=== PATIENT | female | born 2000 | race Caucasian/White ===

== ENCOUNTER 2024-07-28 17:21 | Inpatient (IN) ==
--- NOTE | 2024-07-28 18:25 | Emergency Department Note ---
Impression & Plan Mood disorder, Suicidal ideation ED Provider Note NAME: HIEN LAURENT AGE: 23 SEX: Female INFORMANT: Patient ED PROVIDER(S): Joe Madera MD CHIEF COMPLAINT: Mental-health evaluation PLAN: Disposition: Pending admission to [facility] Outpatient prescription management: none Referral: None MEDICAL DECISION MAKING: Patient presented because of mental health evaluation by direction of her counselor. There was concerns about escalating suicidal thoughts. Patient's blood work and urinalysis were unremarkable. Tylenol, salicylate and alcohol levels negative. Patient was evaluated by the mail manager. [facility] was consulted for inpatient management. Care/management discussed with: ED psychiatric telephonic case manager Level of care consideration(s): After review of the information above and other included data, I feel the patient requires escalation of care to admission Triage Nursing notes: reviewed and agree them. Vital Signs: reviewed and remarkable for no significant abnormalities Additional History obtained from: none Chronic Medical/Social Conditions affecting care: Depression Prior/ Outside/ External records reviewed: none Differential Diagnosis: Mood disorder, infection, hypoglycemia, electrolyte abnormalities, cardiac sources, intracerebral event, toxicologic, trauma, neurologic, as well as other pathologies. Diagnostics, independently interpreted by me: ECG: none Cardiac Monitoring: none Medical decision rules: none Imaging studies: Deferred HPI: 23 year old Female arrives for a mental health evaluation. Patient was referred to the ER by her counselor due to thoughts of SI. Patient's counselor did contact the emergency department and spoke to ED case management noting concerns with developing SI plans and recommended inpatient management. Patient notes that she has not been sleeping well over the last week. Her energy and concentration is also down. Patient denies any recent medical illness. Denies any alcohol on a regular basis. No drug use. Pt denies LOC, headache, fevers, chills, diaphoresis, visual changes, neck pain, chest pain, breathing difficulties, nausea, vomiting, abdominal pain, back pain, urinary symptoms, numbness, weakness, lymphadenopathy, rash, or other complaints. PAST MEDICAL HISTORY: See Below, depression, asthma PAST SURGICAL HISTORY: See Below, SOCIAL HISTORY: See Below, [employer] student [employer] MEDICATIONS: See Below ALLERGIES: See Below VITALS: See Below PHYSICAL EXAMINATION: GENERAL: Awake, alert, anxious-appearing, in no distress HENT: Normocephalic, atraumatic. Oropharynx unremarkable. EYES: Normal conjunctiva. Sclera non-icteric. NECK: Inspection normal. Non-tender. Supple. No nuchal rigidity. FROM. No masses. RESPIRATORY: Clear to auscultation. No wheezes. No rales. Normal respiratory effort. CARDIAC: Normal rate. Normal rhythm. No murmurs. No rubs. Extremities warm and well perfused. Pulses equal. No JVD. GI: Soft, non-distended. No tenderness to palpation. No rebound or guarding. No masses. RECTAL: Deferred. MUSCULOSKELETAL: Atraumatic. Chest examination reveals no tenderness. The back is symmetrical on inspection without obvious abnormality. There is no CVA tenderness to palpation. No joint edema. LOWER EXTREMITIES: Calves are equal size bilaterally and non-tender. No edema. No discoloration. NEURO: Normal sensorium. No sensory or motor deficits noted. SKIN: No rash or jaundice noted. PSYCH: Depressed mood. Vague SI. Labile affect. PROCEDURES: none CRITICAL CARE: none OBSERVATION NOTE: none Past Med/Surg History Problem List (Updated 07/31/24 @ 10:40 by Kev Zimmerman MD) Social anxiety disorder Conflict-avoiding behavior Nightmares Generalized anxiety disorder with panic attacks Major depression, recurrent Depression with suicidal ideation Suicidal ideation (Acute) Mood disorder (Acute) Medical History Allergies Dyspepsia Anxiety Asthma Surgical History No pertinent past surgical history Social History Smoking Status: Never smoker Preferred Language: Turkmen Communication Ability: Effective Melt Supervisor Required: No Beliefs That Will Affect Care: None Feels Safe at Home: Yes Gender Identity: Female Assistive Devices: None Allergies Allergies Allergy/AdvReac Type Severity Reaction Status Date / Time nut - unspecified Allergy Severe Anaphylaxis Unverified 07/29/24 02:50 azithromycin Allergy Intermediate Unverified 04/20/24 12:30 dog dander Allergy Intermediate Hives Unverified 07/29/24 02:51 cat dander Allergy Hives Unverified 07/29/24 02:51 Home Meds Home Medications Medication Instructions Recorded Confirmed buspirone 10 mg tablet 10 mg PO TID 04/20/24 07/28/24 zonisamide 100 mg capsule 100 mg PO HS 04/20/24 07/28/24 budesonide-formoterol HFA 160 2 puff inhalation BID 07/28/24 07/28/24 mcg-4.5 mcg/actuation aerosol inhaler (Symbicort) escitalopram oxalate 20 mg tablet 20 mg PO HS 07/28/24 07/28/24 loratadine 10 mg tablet (Claritin) 10 mg PO DAILY 07/28/24 07/28/24 Previous Rx's Medication Instructions Recorded albuterol sulfate 90 mcg/actuation 2 inh inhalation Q6H PRN shortness 01/16/22 aerosol inhaler (Ventolin HFA) of breath or wheezing #8.5 grams Results & Data (ED) Vital Signs Vital Signs - 24 hr 07/28/24 17:24 Temperature 36.6 C Temperature Source Temporal Artery Scan Pulse Rate 101 H Respiratory Rate 18 Respiratory Effort / Characteristics Non-Labored Spontaneous Respiratory Depth Normal Blood Pressure 117/71 Blood Pressure Mean 86 Blood Pressure Position Sitting Pulse Oximetry 97 Oxygen Delivery Method Room Air Sepsis Recent Fever Within 48 Hours No Sepsis New/Unexplained Change in Mental Status No Sepsis Action Taken by Nursing No Action Required Laboratory Data 07/28/24 17:48 07/28/24 17:48 Lab Results 07/28/24 07/28/24 07/28/24 Range/Units 17:08 17:34 17:48 WBC 5.66 (4.8-10.8) K/ul RBC 4.73 (4.20-5.40) M/uL Hgb 13.8 (12.0-16.0) g/dl Hct 41.3 (37.0-47.0) % MCV 87.3 (80.0-100.0) fL MCH 29.2 (25.0-34.0) pg MCHC 33.4 (32.0-36.0) g/dL RDW Std Deviation 39.9 (36.4-46.3) fL RDW Coeff of Glendy 12.5 (11.5-14.5) % Plt Count 367 (130-400) K/uL MPV 9.1 L (9.4-12.4) fL Immature Gran % (Auto) 0.4 % Neut % (Auto) 59.3 % Lymph % (Auto) 27.0 % [place] % (Auto) 6.0 % Eos % (Auto) 6.9 % Baso % (Auto) 0.4 % Neut # (Auto) 3.36 (1.40-6.50) K/uL Lymph # (Auto) 1.53 (1.20-3.40) K/uL [place] # (Auto) 0.34 (0.11-0.59) K/uL Eos # (Auto) 0.39 (0.00-0.50) K/uL Baso # (Auto) 0.02 (0.00-0.20) K/uL Immature Gran # (Auto) 0.02 (0.01-0.20) K/uL Sodium 140 (136-145) mmol/L Potassium 3.7 (3.5-5.1) mmol/L Chloride 107 (98-107) mmol/L Carbon Dioxide 25 (21-32) mmol/L Anion Gap 8 (3-11) BUN 12 (6-23) mg/dl Creatinine 0.81 (0.6-1.2) mg/dl Est Cr Clr Drug Dosing 74.5 ml/min eGFR 105.85 BUN/Creatinine Ratio 14.8 (10-20) Glucose 82 (70-99(Fasting)) mg/dl Calcium 9.8 (8.6-10.3) mg/dl Total Bilirubin 0.3 (0.2-1.0) mg/dl AST 17 (13-39) U/L ALT 11 (7-52) U/L Alkaline Phosphatase 51 (34-104) U/L Total Protein 7.7 (6.0-8.3) gm/dl Albumin 4.7 (3.4-5.0) gm/dl Globulin 3.0 (2.5-4.0) gm/dl Albumin/Globulin Ratio 1.6 (0.9-2) TSH 0.513 (0.300-4.500) uIu/ml HCG, Qual Negative (Negative) Urine Color Yellow Urine Appearance Cloudy A (Clear) Urine pH 5.5 (4.5-7.5) Ur Specific [place] 1.034 H (1.000-1.030) Urine Protein Trace H (Negative) Urine Glucose (UA) Negative (Negative) Urine Ketones 1+ H (Negative) Urine Blood 1+ H (Negative) Urine Nitrite Negative (Negative) Urine Bilirubin Negative (Negative) Urine Urobilinogen Negative (Negative) Ur Leukocyte Esterase Negative (Negative) Urine WBC (Auto) 0-5 (0-5) /hpf Urine RBC (Auto) 6-10 H (0-2) /hpf U Hyaline Cast (Auto) 0-2 (0-2) /lpf U Epithel Cells (Auto) 6-10 H (0-2) /hpf Urine Bacteria (Auto) None Seen (None Seen) Calcium Oxalate Crystal Present A (None Prsent) POC Ur Test (NEG) Urine Opiates Screen (Neg) Ur Methadone, Qual (Neg) Urine Fentanyl Screen (Neg) Acetaminophen < 3 L (10-30) ug/ml Urine Barbiturates (Neg) Ur Phencyclidine (PCP) (Neg) U Amphetamin/Meth Scrn (Neg) MDMA (Ecstasy) Screen (Neg) U Benzodiazepines Scrn (Neg) Ur Cocaine Metabolite (Neg) U Marijuana (THC) Screen (Neg) Ethyl Alcohol mg/dL < 10.0 (<10.0) mg/dl SARS-CoV-2, RNA, NAAT NEGATIVE (NEGATIVE) 07/28/24 07/28/24 Range/Units 20:25 20:32 WBC (4.8-10.8) K/ul RBC (4.20-5.40) M/uL Hgb (12.0-16.0) g/dl Hct (37.0-47.0) % MCV (80.0-100.0) fL MCH (25.0-34.0) pg MCHC (32.0-36.0) g/dL RDW Std Deviation (36.4-46.3) fL RDW Coeff of Glendy (11.5-14.5) % Plt Count (130-400) K/uL MPV (9.4-12.4) fL Immature Gran % (Auto) % Neut % (Auto) % Lymph % (Auto) % [place] % (Auto) % Eos % (Auto) % Baso % (Auto) % Neut # (Auto) (1.40-6.50) K/uL Lymph # (Auto) (1.20-3.40) K/uL [place] # (Auto) (0.11-0.59) K/uL Eos # (Auto) (0.00-0.50) K/uL Baso # (Auto) (0.00-0.20) K/uL Immature Gran # (Auto) (0.01-0.20) K/uL Sodium (136-145) mmol/L Potassium (3.5-5.1) mmol/L Chloride (98-107) mmol/L Carbon Dioxide (21-32) mmol/L Anion Gap (3-11) BUN (6-23) mg/dl Creatinine (0.6-1.2) mg/dl Est Cr Clr Drug Dosing ml/min eGFR BUN/Creatinine Ratio (10-20) Glucose (70-99(Fasting)) mg/dl Calcium (8.6-10.3) mg/dl Total Bilirubin (0.2-1.0) mg/dl AST (13-39) U/L ALT (7-52) U/L Alkaline Phosphatase (34-104) U/L Total Protein (6.0-8.3) gm/dl Albumin (3.4-5.0) gm/dl Globulin (2.5-4.0) gm/dl Albumin/Globulin Ratio (0.9-2) TSH (0.300-4.500) uIu/ml HCG, Qual (Negative) Urine Color Urine Appearance (Clear) Urine pH (4.5-7.5) Ur Specific [place] (1.000-1.030) Urine Protein (Negative) Urine Glucose (UA) (Negative) Urine Ketones (Negative) Urine Blood (Negative) Urine Nitrite (Negative) Urine Bilirubin (Negative) Urine Urobilinogen (Negative) Ur Leukocyte Esterase (Negative) Urine WBC (Auto) (0-5) /hpf Urine RBC (Auto) (0-2) /hpf U Hyaline Cast (Auto) (0-2) /lpf U Epithel Cells (Auto) (0-2) /hpf Urine Bacteria (Auto) (None Seen) Calcium Oxalate Crystal (None Prsent) POC Ur Test NEG (NEG) Urine Opiates Screen Neg (Neg) Ur Methadone, Qual Neg (Neg) Urine Fentanyl Screen Neg (Neg) Acetaminophen (10-30) ug/ml Urine Barbiturates Neg (Neg) Ur Phencyclidine (PCP) Neg (Neg) U Amphetamin/Meth Scrn Neg (Neg) MDMA (Ecstasy) Screen Neg (Neg) U Benzodiazepines Scrn Neg (Neg) Ur Cocaine Metabolite Neg (Neg) U Marijuana (THC) Screen Neg (Neg) Ethyl Alcohol mg/dL (<10.0) mg/dl SARS-CoV-2, RNA, NAAT (NEGATIVE) Administered Medications Buspirone HCl (Buspirone 5 Mg Tab) 10 mg PO TID [facility] Stop: 08/28/24 20:59 Last Admin: 08/01/24 14:22 Dose: 10 mg Documented By: Admin: 08/01/24 09:23 Dose: 10 mg Documented By: Admin: 07/31/24 21:10 Dose: 10 mg Documented By: Admin: 07/31/24 14:20 Dose: 10 mg Documented By: Admin: 07/31/24 09:37 Dose: 10 mg Documented By: Admin: 07/30/24 22:21 Dose: 10 mg Documented By: Admin: 07/30/24 13:55 Dose: 10 mg Documented By: Admin: 07/30/24 09:52 Dose: 10 mg Documented By: Admin: 07/29/24 21:22 Dose: 10 mg Documented By: SAPNA Escitalopram Oxalate (Escitalopram Oxalate 20 Mg Tab) 20 mg PO [facility] Stop: 08/28/24 21:59 Last Admin: 07/31/24 21:10 Dose: 20 mg Documented By: Admin: 07/30/24 22:22 Dose: 20 mg Documented By: Admin: 07/29/24 21:22 Dose: 20 mg Documented By: SAPNA Fluticasone/Vilanterol (Fluticasone/Vilanterol 200/25mcg 14 Puffs/Inhaler) 1 puffs INH DAILY [facility]; Protocol Stop: 08/29/24 08:59 Last Admin: 08/01/24 09:23 Dose: 1 puffs Documented By: Admin: 07/31/24 09:36 Dose: 1 puffs Documented By: Admin: 07/30/24 09:53 Dose: 1 puffs Documented By: RICHARDT Loratadine (Loratadine 10 Mg Tab) 10 mg PO DAILY [facility] Stop: 08/28/24 15:59 Last Admin: 08/01/24 09:23 Dose: 10 mg Documented By: Admin: 07/31/24 09:37 Dose: 10 mg Documented By: Admin: 07/30/24 09:53 Dose: 10 mg Documented By: Admin: 07/29/24 16:36 Dose: 10 mg Documented By: SAPNA Zonisamide (Zonisamide 100 Mg Capsule) 100 mg PO HS [facility] Stop: 08/28/24 21:59 Last Admin: 07/31/24 21:10 Dose: 100 mg Documented By: Admin: 07/30/24 22:22 Dose: 100 mg Documented By: Admin: 07/29/24 21:23 Dose: 100 mg Documented By: SAPNA Discontinued Medications Buspirone HCl (Buspirone 5 Mg Tab) 10 mg PO TID [facility] Stop: 08/27/24 20:59 Last Admin: 07/28/24 20:33 Dose: 10 mg Documented By: MACHELLE Clonidine HCl (Clonidine Hcl 0.1 Mg Tab) 0.1 mg PO [facility] Stop: 08/28/24 21:59 Last Admin: 07/31/24 21:10 Dose: Not Given Documented By: Admin: 07/30/24 22:21 Dose: 0.1 mg Documented By: Admin: 07/29/24 21:22 Dose: 0.1 mg Documented By: SAPNA Escitalopram Oxalate (Escitalopram Oxalate 20 Mg Tab) 20 mg PO NOW STA Stop: 07/28/24 22:49 Last Admin: 07/28/24 23:11 Dose: 20 mg Documented By: TERRY Zonisamide (Zonisamide 100 Mg Capsule) 100 mg PO [facility] Stop: 08/27/24 22:49 Last Admin: 07/28/24 23:10 Dose: 100 mg Documented By: TERRY Discharge Plan Visit Data Chief Complaint: Mental Health Evaluation Stated Complaint: MENTAL HEALTH EVAL ED Provider: Savanna Goldman Discharge Problem: Mood disorder, Suicidal ideation Patient Disposition: Admitted As Inpatient Discharge Instructions Interventions: ED Discharge Assessment Last Done: 07/29/24 01:24
[2024-07-28 18:32] LABS: Basophils # (auto) 0.02 K/uL (0.00-0.20); Basophils % (auto) 0.4 %; Eosinophils # (auto) 0.39 K/uL (0.00-0.50); Eosinophils % (auto) 6.9 %; Hematocrit (blood only) 41.3 % (37.0-47.0); Hemoglobin 13.8 g/dl (12.0-16.0); Immature Granulocytes # (auto) 0.02 K/uL (0.01-0.20); Immature Granulocytes % (auto) 0.4 %; Lymphocytes # (auto) 1.53 K/uL (1.20-3.40); Mean Corpuscular Hemoglobin 29.2 pg (25.0-34.0); Mean Corpuscular Hgb Conc 33.4 g/dL (32.0-36.0); Mean Corpuscular Volume 87.3 fL (80.0-100.0); Mean Platelet Volume 9.1 fL (9.4-12.4); Monocytes # (auto) 0.34 K/uL (0.11-0.59); Neutrophils # (auto) 3.36 K/uL (1.40-6.50); Neutrophils % (auto) 59.3 %; Platelet Count 367 K/uL (130-400); RDW Coefficient of Variation 12.5 % (11.5-14.5); RDW Standard Deviation 39.9 fL (36.4-46.3); Red Blood Count 4.73 M/uL (4.20-5.40); White Blood Count 5.66 K/ul (4.8-10.8)
[2024-07-28 18:39] LABS: Appearance Urine Cloudy (Clear); Bacteria Urine Automated None Seen (None Seen); Bilirubin Urine Negative (Negative); Blood Urine 1+ (Negative); Calcium Oxalate Crystals Urine Present (None Prsent); Cast Urine Automated 0-2 /lpf (0-2); Color Urine Yellow; Glucose Urine UA Negative (Negative); Ketones Urine 1+ (Negative); Leukocyte Esterase Urine Negative (Negative); Nitrite Urine Negative (Negative); Protein Urine Trace (Negative); Specific Gravity Urine 1.034 (1.000-1.030); Urobilinogen Urine Negative (Negative); WBC Urine Automated 0-5 /hpf (0-5); pH Urine 5.5 (4.5-7.5)
[2024-07-28 18:43] LABS: Albumin Level 4.7 gm/dl (3.4-5.0); Bilirubin,Total 0.3 mg/dl (0.2-1.0); Calcium 9.8 mg/dl (8.6-10.3); Potassium 3.7 mmol/L (3.5-5.1)
[2024-07-28 18:48] LABS: Albumin Globulin Ratio 1.6 (0.9-2); BUN Creatinine Ratio 14.8 (10-20); Creatinine Clr Calc Pharmacy 74.5 ml/min; Total Protein 7.7 gm/dl (6.0-8.3)
[2024-07-28 18:51] LABS: Pregnancy Test, Serum Negative (Negative)
[2024-07-28 19:00] LABS: Thyroid Stimulating Hormone 0.513 uIu/ml (0.300-4.500)
[2024-07-28] MEDS: busPIRone 5 MG TAB PO SCH (20:33)
[2024-07-28] MEDS ORDERED: BUDESONIDE/FORMOTEROL FUMARATE 160/4.5 60 PUFFS/INHALER INH SCH (21:00)
[2024-07-28 21:22] LABS: Amphetamines+Metham, Urine Neg (Neg); Barbiturates, Urine Neg (Neg); Benzodiazepine, Urine Neg (Neg); Cocaine, Urine Neg (Neg); Fentanyl, Urine Neg (Neg); MDMA (Ecstacy), Urine Neg (Neg); Marijuana, Urine Neg (Neg); Methadone, Urine Neg (Neg); Opiate, Urine Neg (Neg); Phencyclidine, Urine Neg (Neg)
--- NOTE | 2024-07-28 22:32 | Emergency Department Note ---
ED Visit Note Patient was signed out to me pending urine drug screen. Patient presented for suicidal ideation with multiple plans. She was pending UDS for inpatient admission. UDS was negative. Patient was evaluated by liaison for [facility] inpatient psychiatric unit. Patient was accepted for admission to the [facility] inpatient psychiatric unit [address]. .
[2024-07-28] MEDS: ZONISAMIDE 100 MG CAPSULE PO SCH (23:10)
[2024-07-28] MEDS: ESCITALOPRAM OXALATE 20 MG TAB PO STA (23:11)
[2024-07-29] MEDS ORDERED: MAGNESIUM HYDROXIDE SUSP 30 ML UDC PO PRN (02:30)
[2024-07-29] MEDS ORDERED: ACETAMINOPHEN 325 MG TAB PO PRN (02:30)
[2024-07-29] MEDS ORDERED: ALUMINUM/MAGNESIUM SUSP 30 ML UDC PO PRN (02:30)
[2024-07-29] MEDS ORDERED: hydrOXYzine HCl 25 MG TAB PO PRN (02:30)
[2024-07-29] MEDS ORDERED: BISMUTH SUBSALICYLATE 262 MG CHEW PO PRN (02:30)
[2024-07-29] MEDS ORDERED: SODIUM CHLORIDE 0.65% NA SOLN 45 ML (OCEAN) PRN (02:30)
[2024-07-29] MEDS ORDERED: FLUTICASONE/VILANTEROL 200/25MCG 14 PUFFS/INHALER INH SCH (09:00)
--- NOTE | 2024-07-29 09:20 | History & Physical ---
Date of Service July 29, 2024 Impression / Recommendations Impression HIEN LAURENT is a 23-year-old woman and [employer] senior in [facility] who currently lives off campus with two roommates, has a history of MDD, ROBERTO, social anxiety, functional dyspepsia, chronic migraines and was admitted on 07/29/24 01:11 on a 201 voluntary commitment for SI with plans of overdosing or cutting herself. Diagnostically consistent with unspecified depression with differential including major depressive disorder vs persistent depressive disorder vs trauma and other stressor related disorder vs possible BPD (less likely) as well as ROBERTO with panic attacks, social anxiety and possible ADHD. Discussed medication treatment options in detail. Discussed risks, benefits and alternatives. She would like to continue prior to admission Buspar and escitalopram as well as start clonidine as off label use for anxiety/nightmares and possible ADHD. Reviewed side effects including but not limited to: GI, PETTY, sexual side effects, and counseled on black box warning of potential for emergence of or increased SI and need to let staff know should this occur or should they feel unsafe. Also discussed importance of seeking emergency care following discharge if this side effect occurs in the future with escitalopram, dizziness with Buspar and low BP/syncope with clonidine. Overall I spent a total of 75 minutes for this admission including review of chart records, review of labwork, direct evaluation of the patient, counseling the patient, ordering medication, risk assessment, discussion with the psychiatric liason RN and documentation in the electronic health record. (1) Depression with suicidal ideation: (2) Major depression, recurrent: (3) Generalized anxiety disorder with panic attacks: (4) Nightmares: (5) Conflict-avoiding behavior: (6) Social anxiety disorder: Plan 07/29/2024: The patient was admitted to the [facility] ([facility] unit) on q15 min checks (behavioral with suicide precautions) for safety. The patient will participate in group, recreational, and milieu therapies and will be offered additional individual and family sessions as clinically appropriate. -Continue prior to admission escitalopram 20mg HS and buspar 10mg TID -Start clonidine 0.1mg HS -Increased focus on processing interpersonal stressors, exploring feelings of worthlessness triggered by roommate interaction, and developing targeted coping strategies for managing panic attacks, building self esteem, self confidence, self advocacy, and interpersonal conflict resolution skills. -Explore disposition options such as [facility] vs increased frequency of outpatient therapy sessions -Agueda BPD screening tool, Adult ADHD self-report Inventory Assets Strengths: supportive relationships, willing to get treatment Needs: safety and stabilization, medication adjustment, additional coping skills, increased outpatient services Suicide Risk Level Suicide Risk Level: High-Moderate (q15 min suicide checks) (SI with plan and increased depression and helplessness prior to admission but feels safe in the hospital and able to ask for support) Risk Factors Assessment Male: No : Yes Do You Have Access To A Gun?: No Health Problems: Yes (asthma) Mental Health Diagnoses: Yes Substance Use Disorders: No Previous Attempt: Yes Family History of Suicide: No Previous Psychiatric Hospitalization: No Hopelessness: Yes Protective Factors Assessment Employed: Yes Stable Relationships: Yes Supportive Family: Yes Good Rapport with Provider: Yes Psychiatric History Identifying Data HIEN LAURENT is a 23-year-old woman and [employer] senior in [facility] who currently lives off campus with two roommates, has a history of MDD, ROBERTO, social anxiety, functional dyspepsia, chronic migraines and was admitted on 07/29/24 01:11 on a 201 voluntary commitment for SI with plans of overdosing or cutting herself. Chief Complaint "I felt unsafe". History of Present Illness She presents for psychiatric admission for worsening depression and SI with possible plans of overdosing or cutting herself in the context of recent conflict with her roommates. She was referred by her outpatient therapist after an extended outpatient session in which she could not safety plan. Hien describes a long history of depression and anxiety but with significant intensification within the last two weeks due to conflict with her roommate. One of her roommates has been trying to adopt a dog to live in their [place] [facility] discussing her discomfort with this plan due to her severe allergies and asthma. The roommate has continued to push that the adoption will be happening and got very upset when Hien reached out to the adoption agency to discuss her reservations about a dog being placed in their apartment. Both her roommates, including the one she is closest with, then accused her of being selfish and immature which lead to feelings of low self-worth, increased anxiety and increased psychic distress. She reports anxiety manifesting in nightly dreams about overdosing, often waking up sweaty and short of breath, and experiences 3-4 panic attacks per month. Recent exacerbation was triggered by conflict with her roommate over getting a dog, which led to feeling attacked and experiencing a significant drop in self- esteem. The conflict has resulted in intense emotional distress, causing her to feel worthless. She has been isolating to her room to avoid potential conflict with her roommates but this has made it more difficult to prepare her food so she's been eating less. Additionally increased sleep issues due to her recurrent dreams, depression, anxiety and increased difficulty eating which she attributes to her dyspepsia with abdominal pain which is exacerbated by anxiety. This interpersonal stress has dramatically increased her suicidal ideation, with recurring thoughts of self-harm and feelings of inadequacy. Her depressive symptoms have worsened from her baseline depression since the conflict intensified last week. SI has been occurring for many years but comes and goes and intensified about a week ago to the point of thinking of plans. She is currently prescribed psychiatric medications: buspar 10mg TID and lexapro 20mg HS Psychiatric ROS notable for no current nor history of symptoms of adelfo, psychosis, OCD nor eating disorder. History of some fidgeting, cannot sit still, mind always thinking of many things at once, alternates between not being able to focus or getting hyper-focused. Sometimes gets intrusive memories of past traumatic events. Self-harm via cutting, last occurred about a month ago. Past Psychiatric History Outpatient Services: therapist-Nani typically weekly PCP from home manages psychiatric medication Previous Psych Admissions: none Do You Have Access To A Gun?: No History of Previous Suicide Attempt: Yes (interrupted attempt) Describe Attempts in the Past: age 10 after attempting to jump from a window Past Medication Trials: Cymbalta-last spring, "not good" Past Head Trauma/Neuro History History of Concussion/Seizure: No Allergies Allergy/AdvReac Type Severity Reaction Status Date / Time nut - unspecified Allergy Severe Anaphylaxis Unverified 07/29/24 02:50 azithromycin Allergy Intermediate Unverified 04/20/24 12:30 dog dander Allergy Intermediate Hives Unverified 07/29/24 02:51 cat dander Allergy Hives Unverified 07/29/24 02:51 Home Medications Medication Instructions Recorded Confirmed Type albuterol sulfate 90 mcg/actuation 2 inh inhalation Q6H PRN shortness 01/16/22 07/28/24 Rx aerosol inhaler (Ventolin HFA) of breath or wheezing #8.5 grams buspirone 10 mg tablet 10 mg PO TID 04/20/24 07/28/24 History zonisamide 100 mg capsule 100 mg PO HS 04/20/24 07/28/24 History budesonide-formoterol HFA 160 2 puff inhalation BID 07/28/24 07/28/24 History mcg-4.5 mcg/actuation aerosol inhaler (Symbicort) escitalopram oxalate 20 mg tablet 20 mg PO HS 07/28/24 07/28/24 History loratadine 10 mg tablet (Claritin) 10 mg PO DAILY 07/28/24 07/28/24 History Family History Family History of: Depression and Anxiety Family Mental Health History Comment: Mom-depression.anxiety, OCD Brother-depression Alcohol History Hx of Alcohol Use Over the Past 12 Months: Yes (Socially. x2 per month. 1-5 drinks per occasion) AUDIT Total Score: 4 Smoking Use Have You Smoked or Used Tobacco Products in the Last 30 Days: No Smoking Status: Never smoker Substance History Hx of Prescription Med Misuse Over the Past 12 Months: No Hx of Over the Counter Med Misuse Over the Past 12 Months: No Hx of Inhalent Misuse Over the Past 12 Months: No Hx of Organic Substance Use Over the Past 12 Months: No Hx of Illegal Substances/Street Drug Use Over Past 12 Months: No Problems as a Result of Past Substance Use: None Identified Personal History Living Arrangements: Apartment Childhood: lives in [facility] Highest Grade Completed: Some College 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) Marital Status: Single Beliefs That Will Affect Care: None Current Legal Problems: No Hx Legal Problems: No Hx Traumatic Life Events: Yes Patient History Medical History Allergies Dyspepsia Anxiety Asthma Surgical History No pertinent past surgical history Social History Smoking Status: Never smoker Preferred Language: [place] Islander Communication Ability: Effective [employer] Station Operator Required: No Beliefs That Will Affect Care: None Feels Safe at Home: Yes Gender Identity: Female Assistive Devices: None Review of Systems Review of Systems: All systems reviewed & are unremarkable except as noted in HPI & below Physical Exam Psychiatric: Orientation: alert and oriented x 3 Apperance: appropriately dressed and appropriately groomed Eye Contact: good eye contact Motor Behavior: no abnormal motor movements Speech: normal rate/rhythm/volume of speech Affect: + anxious affect and + tearful affect; + mood not congruent with affect (smiles at times which she attributes to nervousness) Mood: + depressed mood and + anxious mood Thought Process: goal directed thought process Thought Content: reality based without delusions Suicidal Thoughts: denies suicidal plan (none for hospital) and denies suicidal intent; + reports suicidal thoughts (intermittent ) Homicidal Thoughts: denies homicidal thoughts Hallucinations: no auditory hallucinations and no visual hallucinations Cognition: recent memory grossly intact, remote memory grossly intact, attention grossly intact and language grossly intact Estimated Intelligence: consistent with education level Insight: + fair insight Judgment: + fair judgement Vital Signs (Past 24 Hours): Last Vital Signs Temp 36.6 C 07/29/24 06:00 Pulse 98 H 07/29/24 06:40 Resp 18 07/29/24 06:00 BP 108/73 07/29/24 06:40 Pulse Ox 98 07/29/24 06:00 O2 Del Method Room Air 07/29/24 06:00 Exam Statement: A physical exam was performed in the ED by Dr. Madera for the purposes of medical clearance. I accept that physical as correct and adequate for the purposes of the inpatient physical exam. Results & Data ([facility]) Laboratory Results Laboratory Results - last 24 hr 07/28/24 07/28/24 07/28/24 17:08 17:34 17:48 WBC 5.66 RBC 4.73 Hgb 13.8 Hct 41.3 MCV 87.3 MCH 29.2 MCHC 33.4 RDW Std Deviation 39.9 RDW Coeff of Glendy 12.5 Plt Count 367 MPV 9.1 L Immature Gran % (Auto) 0.4 Neut % (Auto) 59.3 Lymph % (Auto) 27.0 [place] % (Auto) 6.0 Eos % (Auto) 6.9 Baso % (Auto) 0.4 Neut # (Auto) 3.36 Lymph # (Auto) 1.53 [place] # (Auto) 0.34 Eos # (Auto) 0.39 Baso # (Auto) 0.02 Immature Gran # (Auto) 0.02 Sodium 140 Potassium 3.7 Chloride 107 Carbon Dioxide 25 Anion Gap 8 BUN 12 Creatinine 0.81 Est Cr Clr Drug Dosing 74.5 eGFR 105.85 BUN/Creatinine Ratio 14.8 Glucose 82 Calcium 9.8 Total Bilirubin 0.3 AST 17 ALT 11 Alkaline Phosphatase 51 Total Protein 7.7 Albumin 4.7 Globulin 3.0 Albumin/Globulin Ratio 1.6 TSH 0.513 HCG, Qual Negative Urine Color Yellow Urine Appearance Cloudy A Urine pH 5.5 Ur Specific Elsie 1.034 H Urine Protein Trace H Urine Glucose (UA) Negative Urine Ketones 1+ H Urine Blood 1+ H Urine Nitrite Negative Urine Bilirubin Negative Urine Urobilinogen Negative Ur Leukocyte Esterase Negative Urine WBC (Auto) 0-5 Urine RBC (Auto) 6-10 H U Hyaline Cast (Auto) 0-2 U Epithel Cells (Auto) 6-10 H Urine Bacteria (Auto) None Seen Calcium Oxalate Crystal Present A POC Ur Test Urine Opiates Screen Ur Methadone, Qual Urine Fentanyl Screen Acetaminophen < 3 L Urine Barbiturates Ur Phencyclidine (PCP) U Amphetamin/Meth Scrn MDMA (Ecstasy) Screen U Benzodiazepines Scrn Ur Cocaine Metabolite U Marijuana (THC) Screen Ethyl Alcohol mg/dL < 10.0 SARS-CoV-2, RNA, NAAT NEGATIVE 07/28/24 07/28/24 20:25 20:32 WBC RBC Hgb Hct MCV MCH MCHC RDW Std Deviation RDW Coeff of Glendy Plt Count MPV Immature Gran % (Auto) Neut % (Auto) Lymph % (Auto) [place] % (Auto) Eos % (Auto) Baso % (Auto) Neut # (Auto) Lymph # (Auto) [place] # (Auto) Eos # (Auto) Baso # (Auto) Immature Gran # (Auto) Sodium Potassium Chloride Carbon Dioxide Anion Gap BUN Creatinine Est Cr Clr Drug Dosing eGFR BUN/Creatinine Ratio Glucose Calcium Total Bilirubin AST ALT Alkaline Phosphatase Total Protein Albumin Globulin Albumin/Globulin Ratio TSH HCG, Qual Urine Color Urine Appearance Urine pH Ur Specific Elsie Urine Protein Urine Glucose (UA) Urine Ketones Urine Blood Urine Nitrite Urine Bilirubin Urine Urobilinogen Ur Leukocyte Esterase Urine WBC (Auto) Urine RBC (Auto) U Hyaline Cast (Auto) U Epithel Cells (Auto) Urine Bacteria (Auto) Calcium Oxalate Crystal POC Ur Test NEG Urine Opiates Screen Neg Ur Methadone, Qual Neg Urine Fentanyl Screen Neg Acetaminophen Urine Barbiturates Neg Ur Phencyclidine (PCP) Neg U Amphetamin/Meth Scrn Neg MDMA (Ecstasy) Screen Neg U Benzodiazepines Scrn Neg Ur Cocaine Metabolite Neg U Marijuana (THC) Screen Neg Ethyl Alcohol mg/dL SARS-CoV-2, RNA, NAAT Current Inpatient Medications Current Inpatient Medications: Current Inpatient Medications Acetaminophen (Acetaminophen 325 Mg Tab) 650 mg PO Q4H PRN PRN Reason: Headache or Minor Fever Stop: 08/28/24 02:29 Al Hydrox/Mg Hydrox/Simethicone (Aluminum/Magnesium Susp 30 Ml Udc) 30 ml PO Q4H PRN PRN Reason: GI Upset Stop: 08/28/24 02:29 Bismuth Subsalicylate (Bismuth Subsalicylate 262 Mg Chew) 2 tab PO Q30M PRN PRN Reason: Loose Stool/Diarrhea Stop: 08/28/24 02:29 Hydroxyzine HCl (Hydroxyzine Hcl 25 Mg Tab) 50 mg PO HSZ PRN PRN Reason: Insomnia Stop: 08/28/24 02:29 Hydroxyzine HCl (Hydroxyzine Hcl 25 Mg Tab) 25 mg PO Q4H PRN PRN Reason: Anxiety Stop: 08/28/24 02:29 Magnesium Hydroxide (Magnesium Hydroxide Susp 30 Ml Udc) 30 ml PO DAILY PRN PRN Reason: Constipation Stop: 08/28/24 02:29 Sodium Chloride (Sodium Chloride 0.65% Na Soln 45 Ml ([place])) 1 - 2 sprays NA PRN PRN PRN Reason: Nasal Dryness/Congestion Stop: 08/28/24 02:29
[2024-07-29] MEDS ORDERED: ALBUTEROL HFA 8 GM INHALER INH PRN (15:44)
[2024-07-29] MEDS: LORATADINE 10 MG TAB PO SCH (16:36)
[2024-07-29] MEDS ORDERED: ESCITALOPRAM OXALATE 20 MG TAB PO SCH ×2 (21:00)
[2024-07-29] MEDS ORDERED: ZONISAMIDE 100 MG CAPSULE PO SCH (21:00)
[2024-07-29] MEDS: busPIRone 5 MG TAB PO SCH (21:22)
[2024-07-29] MEDS: ESCITALOPRAM OXALATE 20 MG TAB PO SCH (21:22)
[2024-07-29] MEDS: cloNIDine HCL 0.1 MG TAB PO SCH (21:22)
[2024-07-29] MEDS: ZONISAMIDE 100 MG CAPSULE PO SCH (21:23)
--- NOTE | 2024-07-30 09:39 | Psychiatric Progress Note ---
Date of Service July 30, 2024 Impression / Recommendations Impression HIEN LAURENT is a 23-year-old woman and [employer] senior in [employer] who currently lives off campus with two roommates, has a history of MDD, ROBERTO, social anxiety, functional dyspepsia, chronic migraines and was admitted on 07/29/24 01:11 on a 201 voluntary commitment for SI with plans of overdosing or cutting herself. Diagnostically consistent with unspecified depression with differential including major depressive disorder vs persistent depressive disorder vs trauma and other stressor related disorder vs BPD as well as ROBERTO with panic attacks, social anxiety and possible ADHD. A: Ongoing anxiety but attending groups and working past this, still with some depression and SI but this is lessening. Clonidine helping with sleep so far, will continue to monitor response as sleep was disrupted by peer last night so difficult to accurately gauge efficacy. Reviewed symptom questionnaires: consistent with likely BPD and ADHD. She agrees with this. Reviewed DBT benefits for BPD. Encouraged consideration for IOP. Overall, I spent a total of 25 minutes on this case including meeting with the patient, reviewing the chart, nursing report, multidisciplinary team meeting, orders, and documentation. (1) Depression with suicidal ideation: (2) Major depression, recurrent: (3) Generalized anxiety disorder with panic attacks: (4) Nightmares: (5) Conflict-avoiding behavior: (6) Social anxiety disorder: Plan 07/30/2024: Continue current medications and tx plan. 07/29/2024: The patient was admitted to the [facility] ([facility] mental health unit) on q15 min checks (behavioral with suicide precautions) for safety. The patient will participate in group, recreational, and milieu therapies and will be offered additional individual and family sessions as clinically appropriate. -Continue prior to admission escitalopram 20mg HS and buspar 10mg TID -Start clonidine 0.1mg HS -Increased focus on processing interpersonal stressors, exploring feelings of worthlessness triggered by roommate interaction, and developing targeted coping strategies for managing panic attacks, building self esteem, self confidence, self advocacy, and interpersonal conflict resolution skills. -Explore disposition options such as [facility] vs increased frequency of outpatient therapy sessions -Agueda BPD screening tool, Adult ADHD self-report Inventory Assets Strengths: supportive relationships, willing to get treatment Needs: safety and stabilization, medication adjustment, additional coping skills, increased outpatient services Suicide Risk Level Suicide Risk Level: High-Moderate (q15 min suicide checks) (SI with plan and increased depression and helplessness prior to admission but feels safe in the hospital and able to ask for support) Risk Factors Assessment Male: No : Yes Do You Have Access To A Gun?: No Health Problems: Yes (asthma) Mental Health Diagnoses: Yes Substance Use Disorders: No Previous Attempt: Yes Family History of Suicide: No Previous Psychiatric Hospitalization: No Hopelessness: Yes Protective Factors Assessment Employed: Yes Stable Relationships: Yes Supportive Family: Yes Good Rapport with Provider: Yes Interval History Identifying Information HIEN LAURENT is a 23-year-old woman and [employer] senior in [employer] who currently lives off campus with two roommates, has a history of MDD, ROBERTO, social anxiety, functional dyspepsia, chronic migraines and was admitted on 07/29/24 01:11 on a 201 voluntary commitment for SI with plans of overdosing or cutting herself. Chief Complaint "Ok, pretty anxious". Review of Systems Sleep Information Total Hours of Sleep: 3.75 Meal Information Percent Meal Consumed - Breakfast: 50 Percent Meal Consumed - Lunch: 20 Percent Meal Consumed - Dinner: 100 Subjective Subjective Patient was seen & assessed and interval progress reviewed with treatment team. Attending groups, rated her mood as "5" and "exhausted" yesterday evening. Today she reports her mood is "anxious" due to the unfamiliar environment but she's still attending groups and trying to overcome this. She found the clonidine was very helpful for getting her to fall asleep but she woke up multiple times due to a disruptive peer on the unit. SI is lessening today. She denies any medication side effects. Physical Exam Psychiatric Orientation: alert and oriented x 3 Apperance: appropriately dressed and appropriately groomed Eye Contact: good eye contact Motor Behavior: no abnormal motor movements Speech: normal rate/rhythm/volume of speech Affect: + anxious affect and + constricted affect Mood: + depressed mood and + anxious mood Thought Process: goal directed thought process Thought Content: reality based without delusions Suicidal Thoughts: denies suicidal plan (none for hospital) and denies suicidal intent; + reports suicidal thoughts (intermittent, lessening ) Homicidal Thoughts: denies homicidal thoughts Hallucinations: no auditory hallucinations and no visual hallucinations Cognition: recent memory grossly intact, remote memory grossly intact, attention grossly intact and language grossly intact Estimated Intelligence: consistent with education level Insight: + fair insight Judgment: + fair judgement Vital Signs (Past 24 Hours) Last Vital Signs Temp 36.7 C 07/30/24 06:44 Pulse 90 07/30/24 06:45 Resp 16 07/30/24 06:44 BP 72/47 L 07/30/24 06:45 Pulse Ox 98 07/29/24 06:00 O2 Del Method Room Air 07/29/24 06:00 Results & Data ([facility]) Current Inpatient Medications Current Inpatient Medications: Current Inpatient Medications Acetaminophen (Acetaminophen 325 Mg Tab) 650 mg PO Q4H PRN PRN Reason: Headache or Minor Fever Stop: 08/28/24 02:29 Al Hydrox/Mg Hydrox/Simethicone (Aluminum/Magnesium Susp 30 Ml Udc) 30 ml PO Q4H PRN PRN Reason: GI Upset Stop: 08/28/24 02:29 Albuterol (Albuterol Hfa 8 Gm Inhaler) 2 puffs INH Q6H PRN PRN Reason: shortness of breath or wheezing Stop: 08/28/24 15:43 Bismuth Subsalicylate (Bismuth Subsalicylate 262 Mg Chew) 2 tab PO Q30M PRN PRN Reason: Loose Stool/Diarrhea Stop: 08/28/24 02:29 Buspirone HCl (Buspirone 5 Mg Tab) 10 mg PO TID KARISHMA Stop: 08/28/24 20:59 Last Admin: 07/29/24 21:22 Dose: 10 mg Clonidine HCl (Clonidine Hcl 0.1 Mg Tab) 0.1 mg PO HS KARISHMA Stop: 08/28/24 21:59 Last Admin: 07/29/24 21:22 Dose: 0.1 mg Escitalopram Oxalate (Escitalopram Oxalate 20 Mg Tab) 20 mg PO HS KARISHMA Stop: 08/28/24 21:59 Last Admin: 07/29/24 21:22 Dose: 20 mg Fluticasone/Vilanterol (Fluticasone/Vilanterol 200/25mcg 14 Puffs/Inhaler) 1 puffs INH DAILY KARISHMA; Protocol Stop: 08/29/24 08:59 Hydroxyzine HCl (Hydroxyzine Hcl 25 Mg Tab) 50 mg PO HSZ PRN PRN Reason: Insomnia Stop: 08/28/24 02:29 Hydroxyzine HCl (Hydroxyzine Hcl 25 Mg Tab) 25 mg PO Q4H PRN PRN Reason: Anxiety Stop: 08/28/24 02:29 Loratadine (Loratadine 10 Mg Tab) 10 mg PO DAILY KARISHMA Stop: 08/28/24 15:59 Last Admin: 07/29/24 16:36 Dose: 10 mg Magnesium Hydroxide (Magnesium Hydroxide Susp 30 Ml Udc) 30 ml PO DAILY PRN PRN Reason: Constipation Stop: 08/28/24 02:29 Sodium Chloride (Sodium Chloride 0.65% Na Soln 45 Ml ([place])) 1 - 2 sprays NA PRN PRN PRN Reason: Nasal Dryness/Congestion Stop: 08/28/24 02:29 Zonisamide (Zonisamide 100 Mg Capsule) 100 mg PO HS KARISHMA Stop: 08/28/24 21:59 Last Admin: 07/29/24 21:23 Dose: 100 mg Mental Health & Subst Abuse Tx Therapist Name of Therapist: Nani Samson
[2024-07-30] MEDS: FLUTICASONE/VILANTEROL 200/25MCG 14 PUFFS/INHALER INH SCH (09:53)
--- NOTE | 2024-07-31 10:29 | Psychiatric Progress Note ---
Date of Service July 31, 2024 Impression / Recommendations Impression HIEN LAURENT is a 23-year-old woman and [employer] senior in [employer] [facility] who currently lives off campus with two roommates, has a history of MDD, ROBERTO, social anxiety, functional dyspepsia, chronic migraines and was admitted on 07/29/24 01:11 on a 201 voluntary commitment for SI with plans of overdosing or cutting herself. Diagnostically consistent with unspecified depression with differential including major depressive disorder vs persistent depressive disorder vs trauma and other stressor related disorder vs BPD as well as ROBERTO with panic attacks, social anxiety and possible ADHD. A: Ongoing anxiety but attending groups and working past this, still with some depression and SI but this is lessening. Clonidine helping with sleep so far, will continue to monitor response as sleep was disrupted by peer last night so difficult to accurately gauge efficacy. Reviewed symptom questionnaires: consistent with likely BPD and ADHD. She agrees with this. Reviewed DBT benefits for BPD. Encouraged consideration for IOP. Overall, I spent a total of 25 minutes on this case including meeting with the patient, reviewing the chart, nursing report, multidisciplinary team meeting, orders, and documentation. (1) Depression with suicidal ideation: (2) Major depression, recurrent: (3) Generalized anxiety disorder with panic attacks: (4) Nightmares: (5) Conflict-avoiding behavior: (6) Social anxiety disorder: Plan 07/31/24: Continue current medication. Social Meeting to be aranged. 07/30/2024: Continue current medications and tx plan. 07/29/2024: The patient was admitted to the [facility] ([facility]) on q15 min checks (behavioral with suicide precautions) for safety. The patient will participate in group, recreational, and milieu therapies and will be offered additional individual and family sessions as clinically appropriate. -Continue prior to admission escitalopram 20mg HS and buspar 10mg TID -Start clonidine 0.1mg HS -Increased focus on processing interpersonal stressors, exploring feelings of worthlessness triggered by roommate interaction, and developing targeted coping strategies for managing panic attacks, building self esteem, self confidence, self advocacy, and interpersonal conflict resolution skills. -Explore disposition options such as [facility] vs increased frequency of outpatient therapy sessions -Agueda BPD screening tool, Adult ADHD self-report Inventory Assets Strengths: supportive relationships, willing to get treatment Needs: safety and stabilization, medication adjustment, additional coping skills, increased outpatient services Suicide Risk Level Suicide Risk Level: High-Moderate (q15 min suicide checks) (SI with plan and increased depression and helplessness prior to admission but feels safe in the hospital and able to ask for support) Risk Factors Assessment Male: No : Yes Do You Have Access To A Gun?: No Health Problems: Yes (asthma) Mental Health Diagnoses: Yes Substance Use Disorders: No Previous Attempt: Yes Family History of Suicide: No Previous Psychiatric Hospitalization: No Hopelessness: Yes Protective Factors Assessment Employed: Yes Stable Relationships: Yes Supportive Family: Yes Good Rapport with Provider: Yes Interval History Identifying Information HIEN LAURENT is a 23-year-old woman and [employer] senior in [employer] [facility] who currently lives off campus with two roommates, has a history of MDD, ROBERTO, social anxiety, functional dyspepsia, chronic migraines and was admitted on 07/29/24 01:11 on a 201 voluntary commitment for SI with plans of overdosing or cutting herself. Chief Complaint "I was spiraling". Review of Systems Sleep Information Total Hours of Sleep: 5.5 Meal Information Percent Meal Consumed - Breakfast: 40 Percent Meal Consumed - Lunch: 80 Percent Meal Consumed - Dinner: 90 Subjective Subjective Patient was seen & assessed and interval progress reviewed with nursing and social work. She is diagnosed with MDD, ROBERTO, Social Anxiety. PMH of Asthma, Migraines and Dyspepsia. Symptom questionnaires administered during this stay are consistent with BPD and ADHD. She was admitted after "spiraling" following a disagreement with her roommate over getting a pet dog. Clonidine was started on this admission - no side effects. She had been on Lexapro and Buspar at the current doses for at least 6 years. At this time, she reports improved mood ("11/30"). She denied suicidal ideation, intent or plan at this time. Sleep is adequate. Physical Exam Psychiatric Orientation: alert and oriented x 3 Apperance: appropriately dressed and appropriately groomed Eye Contact: good eye contact Motor Behavior: no abnormal motor movements Speech: normal rate/rhythm/volume of speech Affect: + anxious affect, + constricted affect and mood congruent with affect (smiles at times which she attributes to nervousness) Mood: + anxious mood Thought Process: goal directed thought process Thought Content: reality based without delusions Suicidal Thoughts: denies suicidal thoughts, denies suicidal plan (none for hospital) and denies suicidal intent Homicidal Thoughts: denies homicidal thoughts Hallucinations: no auditory hallucinations and no visual hallucinations Cognition: recent memory grossly intact, remote memory grossly intact, attention grossly intact and language grossly intact Estimated Intelligence: consistent with education level Insight: + fair insight Judgment: + fair judgement Vital Signs (Past 24 Hours) Last Vital Signs Temp 36.4 C L 07/31/24 06:33 Pulse 92 H 07/31/24 06:34 Resp 16 07/31/24 06:33 BP 75/46 L 07/31/24 06:34 Pulse Ox 98 07/29/24 06:00 O2 Del Method Room Air 07/29/24 06:00 Results & Data ([facility]) Current Inpatient Medications Current Inpatient Medications: Current Inpatient Medications Acetaminophen (Acetaminophen 325 Mg Tab) 650 mg PO Q4H PRN PRN Reason: Headache or Minor Fever Stop: 08/28/24 02:29 Al Hydrox/Mg Hydrox/Simethicone (Aluminum/Magnesium Susp 30 Ml Udc) 30 ml PO Q4H PRN PRN Reason: GI Upset Stop: 08/28/24 02:29 Albuterol (Albuterol Hfa 8 Gm Inhaler) 2 puffs INH Q6H PRN PRN Reason: shortness of breath or wheezing Stop: 08/28/24 15:43 Bismuth Subsalicylate (Bismuth Subsalicylate 262 Mg Chew) 2 tab PO Q30M PRN PRN Reason: Loose Stool/Diarrhea Stop: 08/28/24 02:29 Buspirone HCl (Buspirone 5 Mg Tab) 10 mg PO TID KARISHMA Stop: 08/28/24 20:59 Last Admin: 07/31/24 09:37 Dose: 10 mg Clonidine HCl (Clonidine Hcl 0.1 Mg Tab) 0.1 mg PO [facility] Stop: 08/28/24 21:59 Last Admin: 07/30/24 22:21 Dose: 0.1 mg Escitalopram Oxalate (Escitalopram Oxalate 20 Mg Tab) 20 mg PO HS KARISHMA Stop: 08/28/24 21:59 Last Admin: 07/30/24 22:22 Dose: 20 mg Fluticasone/Vilanterol (Fluticasone/Vilanterol 200/25mcg 14 Puffs/Inhaler) 1 p uffs INH DAILY KARISHMA; Protocol Stop: 08/29/24 08:59 Last Admin: 07/31/24 09:36 Dose: 1 puffs Hydroxyzine HCl (Hydroxyzine Hcl 25 Mg Tab) 50 mg PO HSZ PRN PRN Reason: Insomnia Stop: 08/28/24 02:29 Hydroxyzine HCl (Hydroxyzine Hcl 25 Mg Tab) 25 mg PO Q4H PRN PRN Reason: Anxiety Stop: 08/28/24 02:29 Loratadine (Loratadine 10 Mg Tab) 10 mg PO DAILY KARISHMA Stop: 08/28/24 15:59 Last Admin: 07/31/24 09:37 Dose: 10 mg Magnesium Hydroxide (Magnesium Hydroxide Susp 30 Ml Udc) 30 ml PO DAILY PRN PRN Reason: Constipation Stop: 08/28/24 02:29 Sodium Chloride (Sodium Chloride 0.65% Na Soln 45 Ml ([place])) 1 - 2 sprays NA PRN PRN PRN Reason: Nasal Dryness/Congestion Stop: 08/28/24 02:29 Zonisamide (Zonisamide 100 Mg Capsule) 100 mg PO HS KARISHMA Stop: 08/28/24 21:59 Last Admin: 07/30/24 22:22 Dose: 100 mg Mental Health & Subst Abuse Tx Psychiatrist Name of Psychiatrist: [facility] Date Of Appointment With Psychiatric Provider: 08/05/24 Time of Appointment with Psychiatrist: 12:00 PM Psychiatric Appointment Comment: Telehealth -They will email you the paperwork 2 complete before appointment Therapist Name of Therapist: Nani Samson Post Discharge Appointments Other #1: Name of Aftercare Appointment: [facility] Date of Aftercare Appointment: 08/03/24 Time of Aftercare Appointment: 11AM Aftercare Appointment Comment: They will send zoom link to [employer] email (2) Major depression, recurrent Major depression episode severity: moderate
--- NOTE | 2024-08-01 12:38 | Psychiatric Progress Note ---
Date of Service August 01, 2024 Impression / Recommendations Impression HIEN LAURENT is a 23-year-old woman and [employer] senior in [facility] who currently lives off campus with two roommates, has a history of MDD, ROBERTO, social anxiety, functional dyspepsia, chronic migraines and was admitted on 07/29/24 01:11 on a 201 voluntary commitment for SI with plans of overdosing or cutting herself. Diagnostically consistent with unspecified depression with differential including major depressive disorder vs persistent depressive disorder vs trauma and other stressor related disorder vs BPD as well as ROBERTO with panic attacks, social anxiety and possible ADHD. A: Improved mood, denied SI. Low bp concerning so will lower Clonidine dose. Symptom review on this admission consistent with likely BPD and ADHD. Reviewed DBT benefits for BPD. Encouraged consideration for IOP. Overall, I spent a total of 25 minutes on this case including meeting with the patient, reviewing the chart, nursing report, multidisciplinary team meeting, orders, and documentation. (1) Depression with suicidal ideation: (2) Major depression, recurrent: (3) Generalized anxiety disorder with panic attacks: (4) Nightmares: (5) Conflict-avoiding behavior: (6) Social anxiety disorder: Plan 08/01/24: Reduce Clonidine to 0.05mg qhs. Would benefit from DBT IOP for BPD. Likely discharge tomorrow. 07/31/24: Continue current medication. Social Meeting to be arranged. 07/30/2024: Continue current medications and tx plan. 07/29/2024: The patient was admitted to the [facility] ([facility]) on q15 min checks (behavioral with suicide precautions) for safety. The patient will participate in group, recreational, and milieu therapies and will be offered additional individual and family sessions as clinically appropriate. -Continue prior to admission escitalopram 20mg HS and buspar 10mg TID -Start clonidine 0.1mg HS -Increased focus on processing interpersonal stressors, exploring feelings of worthlessness triggered by roommate interaction, and developing targeted coping strategies for managing panic attacks, building self esteem, self confidence, self advocacy, and interpersonal conflict resolution skills. -Explore disposition options such as [facility] vs increased frequency of outpatient therapy sessions -Agueda BPD screening tool, Adult ADHD self-report Inventory Assets Strengths: supportive relationships, willing to get treatment Needs: safety and stabilization, medication adjustment, additional coping skills, increased outpatient services Suicide Risk Level Suicide Risk Level: Low (q15 min observation checks) (SI with plan and increased depression and helplessness prior to admission but feels safe in the hospital and able to ask for support) Risk Factors Assessment Male: No : Yes Do You Have Access To A Gun?: No Health Problems: Yes (asthma) Mental Health Diagnoses: Yes Substance Use Disorders: No Previous Attempt: Yes Family History of Suicide: No Previous Psychiatric Hospitalization: No Hopelessness: Yes Protective Factors Assessment Employed: Yes Stable Relationships: Yes Supportive Family: Yes Good Rapport with Provider: Yes Interval History Identifying Information HIEN LAURENT is a 23-year-old woman and [employer] senior in [facility] who currently lives off campus with two roommates, has a history of MDD, ROBERTO, social anxiety, functional dyspepsia, chronic migraines and was admitted on 07/29/24 01:11 on a 201 voluntary commitment for SI with plans of overdosing or cutting herself. Chief Complaint "I feel pretty good right now". Review of Systems Sleep Information Total Hours of Sleep: 4.25 Meal Information Percent Meal Consumed - Breakfast: 40 Percent Meal Consumed - Lunch: 80 Percent Meal Consumed - Dinner: 90 Subjective Subjective Patient was seen & assessed and interval progress reviewed with nursing and social work. Clonidine was held last night due to low BP. She denied any orthostatic symptoms despite low BP (93/60 today). She didn't sleep well (describes being a light sleeper and woke up each time checks were done). Energy, appetite are good. Still with some social anxiety but is interacting well with peers. Denied other medication side effects She denied SI, is future oriented and excited to be applying to [employer] schools. She has set up appointments with mom. Physical Exam Psychiatric Orientation: alert and oriented x 3 Apperance: appropriately dressed and appropriately groomed Eye Contact: good eye contact Motor Behavior: no abnormal motor movements Speech: normal rate/rhythm/volume of speech Affect: + anxious affect and mood congruent with affect (smiles at times which she attributes to nervousness) Mood: + anxious mood Thought Process: goal directed thought process Thought Content: reality based without delusions Suicidal Thoughts: denies suicidal thoughts, denies suicidal plan (none for hospital) and denies suicidal intent Homicidal Thoughts: denies homicidal thoughts Hallucinations: no auditory hallucinations and no visual hallucinations Cognition: recent memory grossly intact, remote memory grossly intact, attention grossly intact and language grossly intact Estimated Intelligence: consistent with education level Insight: + fair insight Judgment: + fair judgement Vital Signs (Past 24 Hours) Last Vital Signs Temp 36.4 C L 08/01/24 06:31 Pulse 96 H 08/01/24 06:32 Resp 16 08/01/24 06:31 BP 93/60 L 08/01/24 06:32 Pulse Ox 98 07/29/24 06:00 O2 Del Method Room Air 07/29/24 06:00 Results & Data ([facility]) Current Inpatient Medications Current Inpatient Medications: Current Inpatient Medications Acetaminophen (Acetaminophen 325 Mg Tab) 650 mg PO Q4H PRN PRN Reason: Headache or Minor Fever Stop: 08/28/24 02:29 Al Hydrox/Mg Hydrox/Simethicone (Aluminum/Magnesium Susp 30 Ml Udc) 30 ml PO Q4H PRN PRN Reason: GI Upset Stop: 08/28/24 02:29 Albuterol (Albuterol Hfa 8 Gm Inhaler) 2 puffs INH Q6H PRN PRN Reason: shortness of breath or wheezing Stop: 08/28/24 15:43 Bismuth Subsalicylate (Bismuth Subsalicylate 262 Mg Chew) 2 tab PO Q30M PRN PRN Reason: Loose Stool/Diarrhea Stop: 08/28/24 02:29 Buspirone HCl (Buspirone 5 Mg Tab) 10 mg PO TID KARISHMA Stop: 08/28/24 20:59 Last Admin: 08/01/24 09:23 Dose: 10 mg Clonidine HCl (Clonidine Hcl 0.1 Mg Tab) 0.1 mg PO [facility] Stop: 08/28/24 21:59 Last Admin: 07/31/24 21:10 Dose: Not Given Escitalopram Oxalate (Escitalopram Oxalate 20 Mg Tab) 20 mg PO [facility] Stop: 08/28/24 21:59 Last Admin: 07/31/24 21:10 Dose: 20 mg Fluticasone/Vilanterol (Fluticasone/Vilanterol 200/25mcg 14 Puffs/Inhaler) 1 puffs INH DAILY KARISHMA; Protocol Stop: 08/29/24 08:59 Last Admin: 08/01/24 09:23 Dose: 1 puffs Hydroxyzine HCl (Hydroxyzine Hcl 25 Mg Tab) 50 mg PO HSZ PRN PRN Reason: Insomnia Stop: 08/28/24 02:29 Hydroxyzine HCl (Hydroxyzine Hcl 25 Mg Tab) 25 mg PO Q4H PRN PRN Reason: Anxiety Stop: 08/28/24 02:29 Loratadine (Loratadine 10 Mg Tab) 10 mg PO DAILY KARISHMA Stop: 08/28/24 15:59 Last Admin: 08/01/24 09:23 Dose: 10 mg Magnesium Hydroxide (Magnesium Hydroxide Susp 30 Ml Udc) 30 ml PO DAILY PRN PRN Reason: Constipation Stop: 08/28/24 02:29 Sodium Chloride (Sodium Chloride 0.65% Na Soln 45 Ml ([place])) 1 - 2 sprays NA PRN PRN PRN Reason: Nasal Dryness/Congestion Stop: 08/28/24 02:29 Zonisamide (Zonisamide 100 Mg Capsule) 100 mg PO HS KARISHMA Stop: 08/28/24 21:59 Last Admin: 07/31/24 21:10 Dose: 100 mg Mental Health & Subst Abuse Tx Psychiatrist Name of Psychiatrist: [facility] Date Of Appointment With Psychiatric Provider: 08/05/24 Time of Appointment with Psychiatrist: 12:00 PM Psychiatric Appointment Comment: Telehealth -They will email you the paperwork 2 complete before appointment Therapist Name of Therapist: Nani Samson (2) Major depression, recurrent Major depression episode severity: moderate
[2024-08-01] MEDS: hydrOXYzine HCl 25 MG TAB PO PRN (17:42)
[2024-08-01] MEDS: cloNIDine HCL 0.1 MG TAB PO SCH (21:11)
--- NOTE | 2024-08-03 12:36 | Discharge Summary ---
Date of Service August 03, 2024 History of Present Illness She presents for psychiatric admission for worsening depression and SI with possible plans of overdosing or cutting herself in the context of recent conflict with her roommates. She was referred by her outpatient therapist after an extended outpatient session in which she could not safety plan. Uma describes a long history of depression and anxiety but with significant intensification within the last two weeks due to conflict with her roommate. One of her roommates has been trying to adopt a dog to live in their apartment despite Uma discussing her discomfort with this plan due to her severe allergies and asthma. The roommate has continued to push that the adoption will be happening and got very upset when Uma reached out to the adoption agency to discuss her reservations about a dog being placed in their apartment. Both her roommates, including the one she is closest with, then accused her of being selfish and immature which lead to feelings of low self-worth, increased anxiety and increased psychic distress. She reports anxiety manifesting in nightly dreams about overdosing, often waking up sweaty and short of breath, and experiences 3-4 panic attacks per month. Recent exacerbation was triggered by conflict with her roommate over getting a dog, which led to feeling attacked and experiencing a significant drop in self- esteem. The conflict has resulted in intense emotional distress, causing her to feel worthless. She has been isolating to her room to avoid potential conflict with her roommates but this has made it more difficult to prepare her food so she's been eating less. Additionally increased sleep issues due to her recurrent dreams, depression, anxiety and increased difficulty eating which she attributes to her dyspepsia with abdominal pain which is exacerbated by anxiety. This interpersonal stress has dramatically increased her suicidal ideation, with recurring thoughts of self-harm and feelings of inadequacy. Her depressive symptoms have worsened from her baseline depression since the conflict intensified last week. SI has been occurring for many years but comes and goes and intensified about a week ago to the point of thinking of plans. She is currently prescribed psychiatric medications: buspar 10mg TID and lexapro 20mg HS Psychiatric ROS notable for no current nor history of symptoms of adelfo, psychosis, OCD nor eating disorder. History of some fidgeting, cannot sit still, mind always thinking of many things at once, alternates between not being able to focus or getting hyper-focused. Sometimes gets intrusive memories of past traumatic events. Self-harm via cutting, last occurred about a month ago. Physical Exam Psychiatric Orientation: alert and oriented x 3 Apperance: appropriately dressed and appropriately groomed Eye Contact: good eye contact Motor Behavior: no abnormal motor movements Speech: normal rate/rhythm/volume of speech Affect: + anxious affect and mood congruent with affect Thought Process: goal directed thought process Thought Content: reality based without delusions Suicidal Thoughts: denies suicidal thoughts, denies suicidal plan (none for hospital) and denies suicidal intent Homicidal Thoughts: denies homicidal thoughts Hallucinations: no auditory hallucinations and no visual hallucinations Cognition: recent memory grossly intact, remote memory grossly intact, attention grossly intact and language grossly intact Estimated Intelligence: consistent with education level Insight: + fair insight Judgment: + fair judgement Vital Signs (Past 24 Hours) Last Vital Signs Temp 36.4 C L 08/02/24 09:27 Pulse 120 H 08/02/24 09:27 Resp 16 08/02/24 09:27 BP 104/70 08/02/24 09:27 Pulse Ox 98 08/02/24 09:27 O2 Del Method Room Air 07/29/24 06:00 Principal Diagnosis Major depression, recurrent, moderate without psychosis vs Persistent Depressive Disorder. Generalized anxiety disorder with panic attacks Social anxiety disorder Psychiatric Data See daily stay summary. In short, safety was maintained and the patient was cooperative with care. Medication changes includedadding Clonidine 0.1mg, later tapered to 0.05mg due to low BP. Continued home meds Lexapro 20mg daily, Buspar 10mg tid and Zonisamide 100mg qhs. She tolerated this well. A family session was held and safety plan was completed prior to discharge. Day of Discharge Assessment Today the patient voices readiness for discharge. They note improvement in mood and deny thoughts to harm self or others. Thoughts remain organized and they are improved from admission. There is no evidence of psychosis. They agree to take mediations as prescribed and keep follow-up appointments. They are stable for discharge to outpatient level of care. Transition of Care Transition Of Care Record: was reviewed with the patient Advance Directives Advance Directives Information Provided: Yes Advance Directives: No Mental Health Advance Directive: No Advance Directives on File: No Living Will: No Power of Stationary Fireman: No Advance Directives Reason:: Declines as Mental Health Visit. Risk Factors Assessment Male: No : Yes Do You Have Access To A Gun?: No Health Problems: Yes (asthma) Mental Health Diagnoses: Yes Substance Use Disorders: No Previous Attempt: Yes Family History of Suicide: No Previous Psychiatric Hospitalization: No Hopelessness: Yes Protective Factors Assessment Employed: Yes Stable Relationships: Yes Supportive Family: Yes Good Rapport with Provider: Yes Discharge Data Lab Results 07/28/24 07/28/24 07/28/24 17:08 17:34 17:48 WBC 5.66 RBC 4.73 Hgb 13.8 Hct 41.3 MCV 87.3 MCH 29.2 MCHC 33.4 RDW Std Deviation 39.9 RDW Coeff of Glendy 12.5 Plt Count 367 MPV 9.1 L Immature Gran % (Auto) 0.4 Neut % (Auto) 59.3 Lymph % (Auto) 27.0 Upson % (Auto) 6.0 Eos % (Auto) 6.9 Baso % (Auto) 0.4 Neut # (Auto) 3.36 Lymph # (Auto) 1.53 Upson # (Auto) 0.34 Eos # (Auto) 0.39 Baso # (Auto) 0.02 Immature Gran # (Auto) 0.02 Sodium 140 Potassium 3.7 Chloride 107 Carbon Dioxide 25 Anion Gap 8 BUN 12 Creatinine 0.81 Est Cr Clr Drug Dosing 74.5 eGFR 105.85 BUN/Creatinine Ratio 14.8 Glucose 82 Calcium 9.8 Total Bilirubin 0.3 AST 17 ALT 11 Alkaline Phosphatase 51 Total Protein 7.7 Albumin 4.7 Globulin 3.0 Albumin/Globulin Ratio 1.6 TSH 0.513 HCG, Qual Negative Urine Color Yellow Urine Appearance Cloudy A Urine pH 5.5 Ur Specific Munden 1.034 H Urine Protein Trace H Urine Glucose (UA) Negative Urine Ketones 1+ H Urine Blood 1+ H Urine Nitrite Negative Urine Bilirubin Negative Urine Urobilinogen Negative Ur Leukocyte Esterase Negative Urine WBC (Auto) 0-5 Urine RBC (Auto) 6-10 H U Hyaline Cast (Auto) 0-2 U Epithel Cells (Auto) 6-10 H Urine Bacteria (Auto) None Seen Calcium Oxalate Crystal Present A POC Ur Test Urine Opiates Screen Ur Methadone, Qual Urine Fentanyl Screen Acetaminophen < 3 L Urine Barbiturates Ur Phencyclidine (PCP) U Amphetamin/Meth Scrn MDMA (Ecstasy) Screen U Benzodiazepines Scrn Ur Cocaine Metabolite U Marijuana (THC) Screen Ethyl Alcohol mg/dL < 10.0 SARS-CoV-2, RNA, NAAT NEGATIVE 07/28/24 07/28/24 20:25 20:32 WBC RBC Hgb Hct MCV MCH MCHC RDW Std Deviation RDW Coeff of Glendy Plt Count MPV Immature Gran % (Auto) Neut % (Auto) Lymph % (Auto) Upson % (Auto) Eos % (Auto) Baso % (Auto) Neut # (Auto) Lymph # (Auto) Upson # (Auto) Eos # (Auto) Baso # (Auto) Immature Gran # (Auto) Sodium Potassium Chloride Carbon Dioxide Anion Gap BUN Creatinine Est Cr Clr Drug Dosing eGFR BUN/Creatinine Ratio Glucose Calcium Total Bilirubin AST ALT Alkaline Phosphatase Total Protein Albumin Globulin Albumin/Globulin Ratio TSH HCG, Qual Urine Color Urine Appearance Urine pH Ur Specific Munden Urine Protein Urine Glucose (UA) Urine Ketones Urine Blood Urine Nitrite Urine Bilirubin Urine Urobilinogen Ur Leukocyte Esterase Urine WBC (Auto) Urine RBC (Auto) U Hyaline Cast (Auto) U Epithel Cells (Auto) Urine Bacteria (Auto) Calcium Oxalate Crystal POC Ur Test NEG Urine Opiates Screen Neg Ur Methadone, Qual Neg Urine Fentanyl Screen Neg Acetaminophen Urine Barbiturates Neg Ur Phencyclidine (PCP) Neg U Amphetamin/Meth Scrn Neg MDMA (Ecstasy) Screen Neg U Benzodiazepines Scrn Neg Ur Cocaine Metabolite Neg U Marijuana (THC) Screen Neg Ethyl Alcohol mg/dL SARS-CoV-2, RNA, NAAT Hospital Course (1) Depression with suicidal ideation: (2) Major depression, recurrent: (3) Generalized anxiety disorder with panic attacks: (4) Nightmares: (5) Conflict-avoiding behavior: (6) Social anxiety disorder: Plan 08/01/24: Reduce Clonidine to 0.05mg qhs. Would benefit from DBT IOP for BPD. Likely discharge tomorrow. 07/31/24: Continue current medication. Social Meeting to be arranged. 07/30/2024: Continue current medications and tx plan. 07/29/2024: The patient was admitted to the [facility] ([facility] mental [facility] unit) on q15 min checks (behavioral with suicide precautions) for safety. The patient will participate in group, recreational, and milieu therapies and will be offered additional individual and family sessions as clinically appropriate. -Continue prior to admission escitalopram 20mg HS and buspar 10mg TID -Start clonidine 0.1mg HS -Increased focus on processing interpersonal stressors, exploring feelings of worthlessness triggered by roommate interaction, and developing targeted coping strategies for managing panic attacks, building self esteem, self confidence, self advocacy, and interpersonal conflict resolution skills. -Explore disposition options such as [facility] vs increased frequency of outpatient therapy sessions -[facility] BPD screening tool, Adult ADHD self-report Mental Health & Subst Abuse Tx Psychiatrist Name of Psychiatrist: [facility] Date Of Appointment With Psychiatric Provider: 08/05/24 Time of Appointment with Psychiatrist: 12:00 PM Psychiatric Appointment Comment: Telehealth -They will email you the paperwork 2 complete before appointment Therapist Name of Therapist: Nani Samson Therapist's Date of Therapist Appointment: 08/03/24 Time of Therapist Appointment: 1400 Post Discharge Appointments Other #1: Name of Aftercare Appointment: [facility] Date of Aftercare Appointment: 08/03/24 Time of Aftercare Appointment: 11AM Aftercare Appointment Comment: They will send zoom link to [facility] email Discharge Plan Discharge Items Patient Disposition: Home - Self-Care Reason For Visit: UNSPECIFIED DEPRESSIVE DISORDER Discharge Diagnosis: Major Depressive Disorder vs Persistent Depressive Disorder Social Anxiety Disorder. Generalized Anxiety Disorder Condition on Discharge: Good Health Concerns: Asthma Dyspepsia Activity: Resume your previous activity Lifting: Gradually increase as tolerated Bathing: No limitations Sexual Activity: When tolerated Weightbearing: Full weightbearing Non-emergency contact: Primary Care Provider, Psychiatrist and Therapist Call non-emergency contact if: you have any medication questions and your symptoms worsen Follow-up/Referrals: Derrell Paz, [Primary Care Provider] - Diet: Regular Addtl Attending Provider Instructions: Continue medication and follow up with outpatient providers. Pending Studies at Discharge: No Stand-Alone Forms: My [employer] Education, Work/School Release, Smoking Cessation Medications and DC Order Prescriptions: New clonidine HCl 0.1 mg Tablet 0.05 mg PO HS 30 Days Qty: 15 0RF Continued buspirone 10 mg tablet 10 mg PO TID zonisamide 100 mg capsule 100 mg PO HS albuterol sulfate [Ventolin HFA] 90 mcg/actuation HFA aerosol inhaler 2 inh inhalation Q6H PRN (Reason: shortness of breath or wheezing) Qty: 8.5 0RF loratadine [Claritin] 10 mg Tablet 10 mg PO DAILY escitalopram oxalate 20 mg tablet 20 mg PO HS budesonide-formoterol [Symbicort] 160-4.5 mcg/actuation HFA aerosol inhaler 2 puff INHALATION BID Discharge Orders: Discharge Order (Routine); Ordered 08/02/24 Ordered By: Kev Henry/Other Patient Handouts: What Can Cause Depression?, Anxiety Disorders Tx, Social Phobia, Anxiety Disorders Meds Admission Data Admit Date/Time: 07/29/24 01:11 Attending Provider: Erin Ramirez Admit Provider: Erin Ramirez Primary Care Provider: Derrell Paz Other Interventions: Discharge Summary Assessment (RN) Last Done: 08/02/24 09:27 PSY Interdisciplinary Discharge Planning Last Done: 08/02/24 10:17 Coding Level of Care Code 57660 D/C day mgmt > 30 min Diagnoses Depression with suicidal ideation F32.A; R45.851 Major depression, recurrent F33.9 Major depression episode severity: moderate Generalized anxiety disorder with panic attacks F41.1; F41.0 Nightmares F51.5 Conflict-avoiding behavior Z91.89 Social anxiety disorder F40.10
== END 2024-08-02 14:23 | disposition home or self-care (01) | DRG 885 ==
LOC: ED 17:21 → 3S 07-29 01:11